=== PATIENT | female | born 1990 | race Caucasian/White ===

== ENCOUNTER 2017-02-17 08:34 | Inpatient (IN) | payer OTHER ==
[2017-02-19] MEDS ORDERED: Promethazine HCl 25 MG/ML VIAL IM PRN (15:39)
[2017-02-19] MEDS ORDERED: Lidocaine 1% (PF) 30 ML VIAL SC PRN (15:39)
[2017-02-19] MEDS ORDERED: LR / Pitocin 40 units/1000 ml 1,000 ML IV PRN (15:39)
[2017-02-19] MEDS ORDERED: Acetaminophen 500 MG TAB PO PRN (15:39)
[2017-02-19] MEDS ORDERED: Zolpidem Tartrate 5 MG TAB PO PRN (15:39)
[2017-02-19] MEDS ORDERED: LR 500 ML/Oxytocin 10 units 500 ML IV SCH (22:00)
[2017-02-19] MEDS: Lactated Ringer's 1,000 ML IV SCH (22:20)
[2017-02-19 23:00] LABS: Hemoglobin 12.5 g/dL (12.0-16.0); Mean Corpuscular HGB CONC 35.3 g/dL (32.0-36.0); Mean Corpuscular Volume 93.4 fl (81.0-99.0); Mean Platelet Volume 8.4 fL (7.4-10.4); Platelet Count 191 thou/uL (130-400); RBC Distribution Width 14.3 % (11.5-14.5); White Blood Cell (WBC) Count 7.9 thou/uL (4.8-10.8)
[2017-02-19] MEDS: Misoprostol 100 MCG TAB VAG SCH (23:30)
[2017-02-19 23:42] LABS: Syphilis Antibody Nonreactive (Nonreactive); Syphilis Antibody Index 0.03 S/CO (<1.00 Non-Reactive)
[2017-02-19 23:48] LABS: HBSAg Index 0.16 S/CO (0-0.99); Hep B Surf Ag Non-Reactive S/CO (NonReactive)
[2017-02-19 23:51] VITALS: BMI 32.2
[2017-02-20] MEDS ORDERED: Misoprostol 100 MCG TAB PO SCH (03:15)
[2017-02-20] MEDS: Misoprostol 100 MCG TAB VAG SCH ×3 (03:16→21:55)
[2017-02-20] MEDS ORDERED: Fentanyl 4 mcg/Marc 0.1% Cadd 100 ML ONE ×2 (07:22→15:20)
[2017-02-20] MEDS: Lactated Ringer's 1,000 ML IV SCH ×3 (07:35→21:00)
[2017-02-20] MEDS ORDERED: Naloxone HCl 0.4 mg/ml Vial IVP PRN ×4 (08:14→22:45)
[2017-02-20] MEDS ORDERED: ePHEDrine/0.9% NaCl/PF SYRINGE 50 mg/10 ml SLOW IVP PRN (08:14)
[2017-02-20] MEDS ORDERED: Eucerin (Mineral Oil/Petrolatum,White) 30 gm Jar TOP PRN ×2 (08:14→22:45)
[2017-02-20] MEDS ORDERED: Ondansetron HCl/PF 4 MG/2 ML Vial IVP PRN ×3 (08:14→22:45)
[2017-02-20] MEDS ORDERED: Promethazine HCl 25 MG/ML VIAL IM PRN ×2 (08:14→22:45)
[2017-02-20] MEDS ORDERED: Acetaminophen 325 MG TAB PO PRN (08:14)
[2017-02-20] MEDS ORDERED: Lactated Ringer's 500 ML IV PRN (08:14)
[2017-02-20] MEDS ORDERED: Fentanyl 4mcg/Marcaine 0.1% Cassette 100 ML EPIDURAL SCH (08:15)
[2017-02-20] MEDS ORDERED: Communication Order-Pharmacy FS SCH ×2 (08:15→22:45)
[2017-02-20] MEDS: Ondansetron HCl/PF 4 MG/2 ML Vial IVP PRN ×2 (09:26→22:26)
[2017-02-20] MEDS: diphenhydrAMINE 50 MG/ML VIAL IVP PRN ×2 (12:12→17:30)
[2017-02-20] MEDS ORDERED: CEFAZOLIN/Water 2 GM/20 ML SYRINGE ONE (21:49)
[2017-02-20] MEDS ORDERED: Bicitra 30 ML UDCUP ONE (21:50)
[2017-02-20] MEDS ORDERED: Morphine PF 1 MG/ML SYR ONE (22:16)
[2017-02-20] MEDS ORDERED: Ondansetron HCl/PF 4 MG/2 ML Vial ONE (22:17)
[2017-02-20] MEDS ORDERED: Oxytocin 10 UNITS/ML VIAL ONE ×2 (22:17→23:04)
[2017-02-20] MEDS ORDERED: Lidocaine 2% PF 5 ML VIAL ONE (22:24)
[2017-02-20] MEDS ORDERED: Lidocaine 2% PF 10 ML AMP (For Epidural Use) EPIDURAL SCH (22:30)
[2017-02-20] MEDS ORDERED: HYDROmorphone 2 MG/ML VIAL SLOW IVP PRN (22:45)
[2017-02-20] MEDS ORDERED: Naloxone HCl 0.4 mg/ml Vial IV PRN (22:45)
[2017-02-20] MEDS ORDERED: Meperidine HCl/PF 25 MG/ML VIAL SLOW IVP PRN (22:45)
[2017-02-20] MEDS ORDERED: Ketorolac Tromethamine 30 MG/ML VIAL IVP SCH (22:45)
[2017-02-20] MEDS ORDERED: Promethazine HCl 25 MG SUPP PR PRN (22:45)
[2017-02-20] MEDS ORDERED: diphenhydrAMINE 50 MG/ML VIAL IVP PRN (22:45)
[2017-02-20] MEDS ORDERED: Fentanyl 250 MCG/5 ML VIAL ONE (23:10)
--- NOTE | 2017-02-20 23:27 | PDOC.OPDEL ---
OB Operative/Delivery Note Delivery Dr/Surgeon: Leila Assist: Jacob Pre-Delivery Diagnosis: elective induction Procedure/Post Delivery Dx: primary low transverse CS Weeks gestation: 40 Anesthesia: epidural - Findings A Sex: male Weight: 9 lb 4 oz - 1 min: 9 - 5 min: 9 - Additional Findings/Plan Placenta delivered: manual removal findings: low transverse hysterotomy without extension Estimated blood loss: 400ml Post delivery plan: routine recovery
[2017-02-20] MEDS ORDERED: LR w/ Pitocin 40 units/1000 ML BAG IV SCH (23:30)
[2017-02-20] MEDS ORDERED: Lanolin Ointment 7 GM TUBE TOP PRN (23:30)
[2017-02-20] MEDS ORDERED: Lactated Ringer's 1,000 ML IV SCH (23:30)
[2017-02-20] MEDS ORDERED: Bisacodyl 10 MG SUPP PR PRN (23:30)
[2017-02-20] MEDS ORDERED: diphenhydrAMINE 25 MG CAP PO PRN (23:30)
[2017-02-20] MEDS ORDERED: Adacel (T-DAP) 0.5 ML VIAL IM ONE (23:30)
[2017-02-20] MEDS ORDERED: traMADol HCl 50 MG TAB PO PRN (23:32)
[2017-02-21] MEDS: Ibuprofen 800 MG TAB PO SCH ×3 (01:18→21:54)
[2017-02-21] MEDS: Ketorolac Tromethamine 30 MG/ML VIAL IVP PRN ×2 (01:34→10:26)
[2017-02-21 06:03] LABS: Hemoglobin 12.2 g/dL (12.0-16.0); Mean Corpuscular HGB CONC 34.2 g/dL (32.0-36.0); Mean Corpuscular Hemoglobin 32.3 pg (27.0-31.0); Mean Corpuscular Volume 94.6 fl (81.0-99.0); Mean Platelet Volume 8.8 fL (7.4-10.4); Platelet Count 166 thou/uL (130-400); RBC Distribution Width 14.2 % (11.5-14.5); Red Blood Cell (RBC) Count 3.78 mill/uL (4.20-5.40); White Blood Cell (WBC) Count 14.4 thou/uL (4.8-10.8)
--- NOTE | 2017-02-21 06:21 | OP ---
DATE OF PROCEDURE: 02/20/2017 PREOPERATIVE DIAGNOSES: 1. A 26-year-old white female at 40 weeks 3 days gestation, status post Cytotec and Pitocin in duction. 2. Failure to progress past 6 cm. POSTOPERATIVE DIAGNOSES: 1. A 26-year-old white female at 40 weeks 3 days gestation, status post Cytotec and Pitocin in duction. 2. Failure to progress past 6 cm. PROCEDURE PERFORMED: Primary low transverse section without extension. SURGEON: Alicia Dee M.D. GOLD ASSAYER: Deion San M.D ANESTHESIA: Epidural. ESTIMATED BLOOD LOSS: 400 mL. COMPLICATIONS: None. COUNTS: Correct x2. ANTIBIOTICS: Two grams Ancef clinical documentation manager to OR. FINDINGS: 1. Vigorous male , Apgars 9 and 9 with a weight of 9 pounds 4 ounces. 2. Normal-appearing fallopian tubes, uterus, and ovaries. COUNTS: Correct x2. DISPOSITION: To recovery room stable. DESCRIPTION OF OPERATIVE PROCEDURE: The patient previously received informed consent in regards to wallace valdez. She was taken back to the operating room where she received adequate dosing of her epidural. She was prepped and draped in usual sterile fashion. Pfannenstiel incision was made in the lower a bdomen and was carried down the fascia. Fascia was nicked in midline. Fascial incision was extended bilaterally using curved Espinoza scissors. Rectus fascia was dissected superiorly and inferiorly and t he rectus muscle bellies were divided in the midline. The peritoneal cavity was entered. The perito jaimie incision was extended. An Barry O retractor was placed. A 2 cm hysterotomy incision was made above the vesicouterine peritoneal reflection and this was extended via finger fractionation. The ba by was delivered in the vertex presentation. Mouth and nares were bulb suctioned on the abdomen. Th e cord was doubly clamped and cut and the baby was handed to the heating engineer, Dr. Hernandez, who was i n attendance. Usual cord blood was obtained. Placenta was manually extracted. Uterus was curetted of any remaining placental fragments with a dry laparotomy sponge. Hysterotomy incision was inspecte d and no extensions were noted. It was closed in running locking fashion with #1 Monocryl suture wit h good hemostasis. Pelvis again was irrigated and suctioned. Hemostasis confirmed, Barry O retract or was removed. Again, hemostasis was confirmed. The rectus muscle bellies were inspected and noted to be hemostatic prior to fascial closure with 0 PDS suture x2 in running continuous fashion. Subcu taneous tissue was noted to be hemostatic prior to closure of skin, which was closed with adilene. T he surgery was terminated. No anesthetic or surgical complications.
[2017-02-21] MEDS: Lactated Ringer's 1,000 ML IV SCH ×2 (06:53→15:13)
--- NOTE | 2017-02-21 08:44 | PRG ---
DATE OF SERVICE: 02/21/2017 This dictation serves as documentation that I was manager assisted living on a primary with Dr. Dee 's as primary on 02/20/2017 for failure to progress.
[2017-02-21] MEDS: Prenatal Vitamin 1 TAB PO SCH (09:08)
[2017-02-21] MEDS: Docusate Calcium (SURFAK) 240 MG CAP PO SCH ×2 (09:09→21:54)
[2017-02-21] MEDS: Simethicone Chewable 80 MG TAB PO PRN ×2 (09:09→16:47)
--- NOTE | 2017-02-21 09:53 | PDOC.PP ---
Post Progress Note Post Day #: 1 PO intake tolerated: yes Flatus: yes Ambulation: yes Vital Signs (12 hours) Temp Pulse Resp BP Pulse Ox 02/21/17 08:28 97.9 F 80 20 109/70 02/21/17 07:45 97.9 F 80 20 02/21/17 06:00 18 02/21/17 05:10 98.1 F 72 20 103/59 L 02/21/17 04:00 98.5 F 68 18 109/71 02/21/17 01:40 97.8 F 68 18 99/57 L 02/21/17 01:10 97.8 F 68 18 114/65 02/21/17 00:40 98.8 F 71 20 121/60 97 Weight Weight 165 lb - Physical Examination General: NAD Cardiovascular: no m/r/g, RRR Respiratory: clear to auscultation bilaterally, non-labored breathing Abdominal: + bowel sounds, lochia, no distention, appropriately TTP Result Diagrams: 02/21/17 05:35 Additional Labs: Post Labs Blood Type A POSITIVE 02/19/17 22:20 Hep Bs Antigen Non-Reactive S/CO (NonReactive) 02/19/17 22:20 - Assessment/Plan doing well post op day 1 rom primary c/s for failure to progress at 6 cm routine post op care.
[2017-02-21] MEDS: Misoprostol 100 MCG TAB VAG SCH (16:13)
[2017-02-22] MEDS: Lactated Ringer's 1,000 ML IV SCH ×4 (00:40→21:49)
[2017-02-22] MEDS: Ibuprofen 800 MG TAB PO SCH ×3 (06:12→21:41)
--- NOTE | 2017-02-22 06:33 | PDOC.PP ---
Post Progress Note Post Day #: 2 Subjective: Doing well PO intake tolerated: yes Flatus: yes Ambulation: yes Vital Signs (12 hours) Temp Pulse Resp BP 02/22/17 04:08 98.2 F 81 20 110/69 02/22/17 00:02 98.1 F 85 18 99/68 02/21/17 20:00 97.9 F 72 18 114/72 Weight Weight 165 lb - Physical Examination General: NAD Cardiovascular: no m/r/g Respiratory: clear to auscultation bilaterally Abdominal: + bowel sounds Extremities: negative homans (B) Skin: CS incision dry & intact (Nutley in place) Neurological: no gross focal deficits Psychiatric: normal affect Result Diagrams: 02/21/17 05:35 Additional Labs: Post Labs Blood Type A POSITIVE 02/19/17 22:20 Hep Bs Antigen Non-Reactive S/CO (NonReactive) 02/19/17 22:20 (1) delivery delivered Code(s): O82 - ENCOUNTER FOR DELIVERY WITHOUT INDICATION Status: Acute (2) Failure to progress in first stage of labor Code(s): [id number] - Status: Acute - Assessment/Plan POD 2 s/p primary CS for FTP. Doing well. incision C/D/I/ We will obs today in house and likely send home tomorrow. Tramadol prescribed per Leila.
[2017-02-22] MEDS: Prenatal Vitamin 1 TAB PO SCH (09:32)
[2017-02-22] MEDS: Docusate Calcium (SURFAK) 240 MG CAP PO SCH ×2 (09:33→21:41)
[2017-02-22 21:58] VITALS: BP 107/66; TEMP 97.9
[2017-02-23] MEDS: Lactated Ringer's 1,000 ML IV SCH (06:11)
[2017-02-23] MEDS: Ibuprofen 800 MG TAB PO SCH (06:11)
--- NOTE | 2017-02-23 08:25 | PDOC.PP ---
Post Progress Note Post Day #: 3 Subjective: Doing well. PO intake tolerated: yes Flatus: yes Ambulation: yes Vital Signs (12 hours) Temp Pulse Resp 02/23/17 08:00 97.9 F 74 18 Weight Weight 165 lb - Physical Examination General: NAD Cardiovascular: no m/r/g Respiratory: clear to auscultation bilaterally Abdominal: + bowel sounds Extremities: negative homans (B) Neurological: no gross focal deficits Psychiatric: A&Ox3 Result Diagrams: 02/21/17 05:35 Additional Labs: Post Labs Blood Type A POSITIVE 02/19/17 22:20 Hep Bs Antigen Non-Reactive S/CO (NonReactive) 02/19/17 22:20 (1) delivery delivered Code(s): O82 - ENCOUNTER FOR DELIVERY WITHOUT INDICATION Status: Acute (2) Failure to progress in first stage of labor Code(s): [id number] - Status: Acute - Assessment/Plan Postop day 3. [place] out next Friday. No evidence infection, or ileus. Doing well. Tramadol ordered by primary MD.
--- NOTE | 2017-02-23 08:27 | PDOC.EVN ---
Event Note - Event Note Event Note: DISCHARGE NOTE Admit: 02/19/17 [facility]: 02/23/17 Patient s/p primary CS by Dr Dee. Discharged home POD3. Danay in place, for removal POD5. Tramadol for outpatient med prn.
[2017-02-23] MEDS: Prenatal Vitamin 1 TAB PO SCH (09:14)
[2017-02-23] MEDS: Docusate Calcium (SURFAK) 240 MG CAP PO SCH (09:14)
== END 2017-02-23 11:25 | disposition home or self-care (01) | DRG 766 ==
LOC: L&D 02-19 21:10 → 3SW 02-21 01:09
PROVIDERS: ADMIT Obstetrics & Gynecology; ATTEND Obstetrics & Gynecology
PROC: 3E0P7VZ Introduction of Hormone into Female Reproductive, Via Natural or Artificial Opening (ICD-10-PCS; principal; 2017-02-19)
PROC: 3E033VJ Introduction of Other Hormone into Peripheral Vein, Percutaneous Approach (ICD-10-PCS; 2017-02-19)
PROC: 10D00Z1 Extraction of Products of Conception, Low, Open Approach (ICD-10-PCS; 2017-02-20)
DX: O66.40 Failed trial of labor, unspecified (principal); Z37.0 Single live birth; Z3A.40 40 weeks gestation of pregnancy
CPT/HCPCS: 36415; 51702; 85027; 86780; 87340; J1200; J1885; J2001; J2274; J2405; J2590; J3010; J7120

== ENCOUNTER 2019-11-29 05:36 | Emergency (ER) | payer OTHER ==
[2019-11-29 06:06] LABS: #Basophils 0.1 thou/uL (0.0-0.2); #Eosinphils 0.1 thou/uL (0.0-0.7); #Lymphocytes 2.5 thou/uL (1.20-3.40); #Monocytes 0.4 thou/uL (0.11-0.59); #Neutrophils 7.4 thou/uL (1.40-6.50); %Basophils 0.6 % (0.0-1.0); %Eosinophils 0.6 % (0.0-10.0); %Lymphocytes 23.7 % (21.0-51.0); %Monocytes 4.1 % (0.0-10.0); Hemoglobin 14.2 g/dL (12.0-16.0); Mean Corpuscular HGB CONC 34.5 g/dL (32.0-36.0); Mean Corpuscular Volume 95.5 fL (78.0-98.0); Mean Platelet Volume 7.9 fL (7.4-10.4); Platelet Count 336 thou/uL (130-400); RBC Distribution Width 11.3 % (11.5-14.5); White Blood Cell (WBC) Count 10.4 thou/uL (4.8-10.8)
[2019-11-29 06:09] LABS: Pregnancy Test - Urine (BHCG) POSITIVE (Negative); Pregu Control Background? CLEAR/WHITE (CLR/WHITE); Pregu Control Bar Appear? YES (CONTROL BAR)
[2019-11-29 06:10] LABS: Bilirubin Negative (Negative); Blood, Urine Negative (Negative); Clarity Clear (Clear); Glucose, Urine (Dipstick) Normal (Negative); Ketone, Urine Negative (Negative); Leukocyte Negative Leu/uL (Negative); Nitrite Negative (Negative); Protein, Urine (Dipstick) 20 mg/dL (Neg-Trace); Specific Gravity, Urine 1.022 (1.002-1.036); Urobilinogen Normal mg/dL (Less than 2); pH, Urine 8.5 (5.0-9.0)
[2019-11-29 06:29] LABS: ALT (SGPT) 12 U/L (8-55); AST (SGOT) 14 U/L (5-34); Albumin 4.3 g/dL (3.5-5.0); Alkaline Phosphatase 54 U/L (40-110); Anion Gap 14 mmol/L (10-20); BUN (Urea Nitrogen) 7 mg/dL (7.0-18.7); Bilirubin, Total 0.3 mg/dL (0.2-1.2); Calc. Creatinine Clearance 0 mL/min (70-130); Calcium 9.2 mg/dL (7.8-10.44); Carbon Dioxide 24 mmol/L (22-29); Chloride 103 mmol/L (98-107); Estimated GFR-MDRD Greater than 90; Globulin 2.9 g/dL (2.4-3.5); Glucose 93 mg/dL (70-105); Lipase 23 U/L (8-78); Potassium 3.6 mmol/L (3.5-5.1); Protein, Total 7.2 g/dL (6.0-8.3); Sodium 137 mmol/L (136-145)
== END 2019-11-29 07:00 | disposition home or self-care (01) ==
LOC: ERS 05:36
DX: O99.891 Other specified diseases and conditions complicating pregnancy (principal); R10.32 Left lower quadrant pain; Z3A.01 Less than 8 weeks gestation of pregnancy
CPT/HCPCS: 80053; 81003; 81025; 83690; 84702; 85025